=== PATIENT | female | born 1970 ===

== ENCOUNTER 2021-07-23 13:21 | Emergency (ER) | payer OTHER, SELFPAY ==
[2021-07-23 14:06] VITALS: BP 158/84; PULSE 95; RESP 18; TEMP 37.1; O2SAT 98; BMI 35.7
[2021-07-23 17:01] LABS: MANUAL DIFF FLAG NO
[2021-07-23 17:03] LABS: Basophils Absolute Auto 0.1 X10*3/uL (0.0-0.2); Basophils Percent Auto 0.5 % (0-2); Eosinophils Absolute Auto 0.4 X10*3/uL (0.0-0.4); Eosinophils Percent Auto 3.2 % (0-4); Hematocrit 42.3 % (37.0-47.0); Hemoglobin 14.5 g/dl (12.0-16.0); Imm Gran Abs Auto 0.05 X10*3/uL (0.00-0.03); Imm Gran Pct Auto 0.4 % (0.0-0.4); Lymphocytes Absolute Auto 1.7 X10*3/uL (1.2-4.9); Lymphocytes Percent Auto 14.6 % (20-40); Mean Corpuscular HGB Conc 34.3 g/dl (31.0-35.0); Mean Corpuscular Hemoglobin 30.9 pg (27.0-33.0); Monocytes Percent Auto 8.1 % (2-11); Neutrophils Absolute Auto 8.6 x10*3/uL (2.0-8.3); Neutrophils Percent Auto 73.2 % (45-73); Platelet Count 339 X10*3/uL (160-400); Red Cell Distribution Width 12.4 % (11.0-16.0); White Blood Count 11.8 X10*3/uL (4.8-10.8)
[2021-07-23 17:21] LABS: Alanine Aminotransferase 33 U/L (0-31); Albumin Level 4.8 g/dL (3.5-5.0); Alkaline Phosphatase 92 U/L (39-117); Anion Gap 14 (12-20); Aspartate Amino Transferase 29 U/L (5-31); Bilirubin Direct 0.3 mg/dL (0.0-0.5); Bilirubin Total 0.8 mg/dL (0.0-1.0); Blood Urea Nitrogen 7 mg/dL (9-16); Calcium 10.5 mg/dL (8.4-10.2); Carbon Dioxide 27 mmol/L (22-29); Chloride 103 mmol/L (96-108); Creatinine Clr Calc Pharmacy 102.4; Estimated Glomerular Filt Rate > 60; Glucose Random 98 mg/dL (60-115); Lipase 40 U/L (8-78); Potassium 3.5 mmol/L (3.3-5.1); Sodium 140 mmol/L (135-145); Total Protein 7.9 g/dL (6.5-8.0)
--- NOTE | 2021-07-23 18:40 | ED_ITS ---
HPI - General Adult General Chief complaint: Nausea/Vomiting/Diarrhea Stated complaint: post surgery/pain vomiting shaking Time Seen by Provider: 07/23/21 19:59 Source: patient Mode of arrival: ambulatory Limitations: no limitations History of Present Illness HPI narrative: 51-year-old female presents with 10/10 right shoulder pain, nausea and vomiting. Had surgery for rotator cuff repair on Tuesday. Was unable to tolerate the sling and she removed herself. Patient does not report any fevers or chills or any other concerning. Onset (ago): day(s) (2) Location: right and upper extremity Radiation: non-radiation Severity: severe Severity scale (1-10): 10 Quality: stabbing and aching Pain Consistency: constant Relieving factors: none Exacerbating factors: other (Vomiting) Related Data Previous Rx's Medication Instructions Recorded ondansetron 4 mg disintegrating 4 mg PO Q8H PRN #14 tab 07/23/21 tablet Allergies Allergy/AdvReac Type Severity Reaction Status Date / Time acetaminophen [From VICODIN] Allergy Unknown SHAKING Verified 07/23/21 19:18 SYNDROME amoxicillin [AMOXICILLIN] Allergy Unknown RASH Verified 07/23/21 19:18 hydrocodone [From VICODIN] Allergy Unknown SHAKING Verified 07/23/21 19:18 SYNDROME Review of Systems Review of Systems: Constitutional: No Fever, No Chills ENT/Mouth: No Ear Pain, No Hoarseness, No sore throat Eyes: No Eye Pain, No Swelling, No Redness, No Foreign Body Cardiovascular: No Chest Pain, No SOB Respiratory: No Cough, No Dyspnea Gastrointestinal: Positive Nausea, positive Vomiting, No Diarrhea, No abdominal Pain Genitourinary: No Dysuria, No Hematuria Musculoskeletal: positive right shoulder pain, No Myalgias, No Joint Swelling Skin: No Skin lacerations, No rash Neuro: No Weakness, No Numbness, No Paresthesias, No Loss of Consciousness, No Dizziness, No Headache Psych: No Anxiety/Panic, No Depression Heme/Lymph: no easy bruising, no Lymphadenopathy Endocrine: No Polyuria, No Polydipsia Yes all other systems are reviewed and are negative [facility] Past Medical History Attestation statement: The following information was validated with the patient. Source: old records reviewed Medical History Anxiety Asthma Depression HTN (hypertension) Social History Social History Advance Directives: No Advance Directives Information Provided: Yes Patient : No Physical Exam Vital Signs: Vital Signs: Last Vital Signs Temp 99.1 F 07/23/21 19:11 Pulse 80 07/23/21 19:11 Resp 18 07/23/21 19:21 BP 149/98 H 07/23/21 19:11 Pulse Ox 100 07/23/21 19:11 BMI result Body Mass Index 35.7 Appearance: Alert. Oriented X3. Moderate distress. Head: Normal external exam. Normocephalic. Atraumatic. No Wyatt signs noted. No raccoon eyes noted Eyes: PERRLA. EOMI. Conjunctiva and sclera normal. Eyelids normal. ENT: TM's Normal. Pharynx normal. Uvula midline. Moist mucous membranes. No trismus noted. No drooling noted. No muffled voice noted. Neck: Normal inspection. Neck supple. No adenopathy. Thyroid Normal. No meningeal signs. No neck mass noted. CVS: Normal heart rate and rhythm. Heart sound normal. No murmurs noted. Pulses equal to all extremities. Respiratory: No respiratory distress. Painless inspiration. Breath sounds normal. No wheezes/rales/rhonchi noted. Chest nontender. No accessory muscle usage noted or decreased air movement noted. Abdomen: Soft and nontender. Bowel sounds normal in all 4 quadrants. No distention noted. No organomegaly noted. No visible injury noted. Back: No CVA tenderness. Full range of motion noted. Skin: Laparoscopic surgical incisions to the right shoulder intact. No indication of infection. No purulent drainage or fluctuance to the sites. Bruising consistent with surgical procedure. warm and dry. Normal skin color. Normal skin turgor. No rashes/lesions/lacerations noted. Extremities: No lower extremity edema. Extremities exhibit normal range of motion with the exception of the right shoulder. Range of motion not tested in the shoulder secondary to laparoscopic rotator cuff repair. Neuro: cranial nerves 2-12 intact, no focal neural deficits, strength 5/5 to all extremities, No motor deficit. No sensory deficit. Course Course Course Narrative: 51-year-old female presents with nausea, vomiting and 10/10 pain to the right upper extremity. Has not been taking her medications because of her nausea. Labs drawn while patient was in the emergency department waiting room. Lab values are unremarkable. COVID, RSV and influenza testing is n egative. Blood pressure elevated, no indication of dehydration at this time. Will give Zofran, 1 L of fluid and some morphine for pain management. 6:40 p.m. patient removed sling in place. Will call out to her orthopedic surgeon. Patient has brisk capillary refill, equal pulses bilaterally. Ne urovascularly intact. Strength 5/5 to the digits. Range of motion to the shoulder not tested secondary surgical procedure on Tuesday. Abdominal exam negative. No chest wall tenderness to palpation. 7:40 p.m. discussion with on-call MD at [facility] Dr. Bruce, I updated her the patient removed the sling on her own regard. They will call her on Tuesday for evaluation. Patient does have brisk capillary refill, no indication of neurovascular injury. No indication of compartment syndrome or indication of infection at the surgical incision sites. Patient received oxycodone 5 mg 42 tablets on Tuesday. I will not be refilling any more medications for this patient. I will give Zofran which was discussed in detail with the provider on-call. Patient understands that she must keep the sling in place at all times. Will prescribe a prescription for Zofran sublingual tablets. Patient verbalized understanding of and agrees to plan of care discharge home. Consultations Consultation #1: [facility] Time: 19:40 Medical Decision Making Differential Diagnosis Differential Diagnosis: Nausea, vomiting, dehydration, medication reaction, infection Medical Records Medical records reviewed: Yes I reviewed the patient's medical records. Lab Data Lab results reviewed: Yes I reviewed the patient's lab results. Result diagrams: 07/23/21 16:55 07/23/21 16:55 Labs: Lab Results 07/23/21 07/23/21 07/23/21 Range/Units 16:55 16:55 19:26 WBC 11.8 H (4.8-10.8) X10*3/uL RBC 4.70 (4.20-5.50) X10*6/uL Hgb 14.5 (12.0-16.0) g/dl Hct 42.3 (37.0-47.0) % MCV 90.0 (80.0-98.0) fL MCH 30.9 (27.0-33.0) pg MCHC 34.3 (31.0-35.0) g/dl RDW 12.4 (11.0-16.0) % Plt Count 339 (160-400) X10*3/uL MPV 9.0 L (9.4-12.3) fL Immature Gran % (Auto) 0.4 (0.0-0.4) % Neut % (Auto) 73.2 H (45-73) % Lymph % (Auto) 14.6 L (20-40) % [place] % (Auto) 8.1 (2-11) % Eos % (Auto) 3.2 (0-4) % Baso % (Auto) 0.5 (0-2) % Lymph # (Auto) 1.7 (1.2-4.9) X10*3/uL [place] # (Auto) 1.0 (0.1-1.2) X10*3/uL Eos # (Auto) 0.4 (0.0-0.4) X10*3/uL Baso # (Auto) 0.1 (0.0-0.2) X10*3/uL Abs Immat Gran (auto) 0.05 H (0.00-0.03) X10*3/uL Absolute Neuts (auto) 8.6 H (2.0-8.3) x10*3/uL Absolute Nucleated RBC 0.000 (0.0-0.012) X10*3/uL Nucleated RBC % (auto) 0.0 (0.0-0.2) /100WBC Sodium 140 (135-145) mmol/L Potassium 3.5 (3.3-5.1) mmol/L Chloride 103 (96-108) mmol/L Carbon Dioxide 27 (22-29) mmol/L Anion Gap 14 (12-20) BUN 7 L (9-16) mg/dL Creatinine 0.84 (0.5-1.4) mg/dL Estim Creat Clear Calc 102.4 Estimated GFR > 60 Random Glucose 98 (60-115) mg/dL Calcium 10.5 H (8.4-10.2) mg/dL Total Bilirubin 0.8 (0.0-1.0) mg/dL Direct Bilirubin 0.3 (0.0-0.5) mg/dL AST 29 (5-31) U/L ALT 33 H (0-31) U/L Alkaline Phosphatase 92 (39-117) U/L Total Protein 7.9 (6.5-8.0) g/dL Albumin 4.8 (3.5-5.0) g/dL Lipase 40 (8-78) U/L Influenza Type A (PCR) NEGATIVE (Negative) Influenza Type B (PCR) NEGATIVE (Negative) RSV RNA Qual (PCR) NEGATIVE (Negative) SARS-CoV-2 RNA (RT-PCR) NEGATIVE (Negative) Discharge Plan Discharge Clinical Impression: Acute postoperative pain Patient Disposition: Home, Self-Care Instructions: Pain Management (ED), Pain Management After Surgery (DC) Additional Instructions: Your evaluated for postsurgical pain, nausea and vomiting. Her COVID-19 test is negative. Please keep the sling in place. Do not remove the sling for any purposes. Your doctor will call you on Tuesday for evaluation. If you do not hear from your surgeon on Tuesday please call for an appointment. I prescribed Zofran for nausea. Please take medication as directed. Thank you for choosing this emergency department for evaluation. Please follow-up with primary care physician as needed. Return to the emergency department for any new, concerning, or worsening symptoms. Prescriptions: New ondansetron 4 mg tablet,disintegrating 4 mg PO Q8H PRN (Reason: nausea and vomiting) Qty: 14 RF: 0 Interventions: ED Discharge Assessment Last Done: 07/23/21 20:46 Discharge Date/Time: 07/23/21 20:47
[2021-07-23 18:42] VITALS: BP 175/86; PULSE 88; RESP 18; TEMP 36.8; O2SAT 99
[2021-07-23 19:11] VITALS: BP 149/98; PULSE 80; RESP 17; TEMP 37.3; O2SAT 100
[2021-07-23] MEDS: 0.9 % Sodium Chloride 1,000 ML 999 ML IVCONT (19:19)
[2021-07-23] MEDS: diphenhydrAMINE HCL 50 MG/ML VIAL 25 MG IVPUSH (19:20)
[2021-07-23 19:21] VITALS: RESP 18
[2021-07-23] MEDS: Morphine Sulfate 4 MG/ML CARTRIDGE IVPUSH (19:21)
[2021-07-23] MEDS: ondansetron HCL 4 MG/2 ML VIAL IVPUSH (19:22)
[2021-07-23 20:12] LABS: Influenza A PCR NEGATIVE (Negative); Influenza B PCR NEGATIVE (Negative); Resp Syncy Virus RNA Qual PCR NEGATIVE (Negative); SARS COV2 PCR INHOUSE NEGATIVE (Negative)
[2021-07-23] MEDS: oxyCODONE HCl Immed Release 5 MG TABLET PO (20:28)
== END 2021-07-23 20:47 | disposition home or self-care (01) ==
PROVIDERS: Nurse Practitioner Family; Emergency Provider Internal Medicine; PCP Physician Assistant Medical
DX: G89.18 Other acute postprocedural pain (principal); M25.511 Pain in right shoulder; I10 Essential (primary) hypertension; J45.909 Unspecified asthma, uncomplicated; Z20.822 Contact with and (suspected) exposure to COVID-19
CPT/HCPCS: 0241U; 36415; 80048; 80076; 83690; 85025; 96361; 96374; 96375; 99284; J1200; J2270; J2405

== ENCOUNTER 2023-10-14 08:34 | Emergency (ER) | payer OTHER, SELFPAY ==
--- NOTE | ~2023-10-14 | XR_ITS ---
EXAMINATION: XR CHEST CLINICAL INFORMATION: Cough with shortness of breath COMPARISON: 11/07/2015 TECHNIQUE: Frontal view of the chest was obtained. FINDINGS: Lungs are well-inflated and clear. Trachea is midline in position. No interstitial disease, consolidation or mass. No pleural effusion or pneumothorax. Cardiac silhouette and pulmonary vessels are normal in size. The mediastinum and izabel have normal contour. The partially visualized components of the reverse right total shoulder arthroplasty are in normal position. XR/XR chest 1V IMPRESSION: Lungs have a normal appearance. No acute cardiopulmonary abnormality.
[2023-10-14 08:41] VITALS: BP 143/92; PULSE 92; RESP 16; TEMP 37.2; O2SAT 98; BMI 37.1
[2023-10-14 08:57] LABS: MANUAL DIFF FLAG NO
[2023-10-14 08:59] LABS: Basophils Absolute Auto 0.1 X10*3/uL (0.0-0.2); Basophils Percent Auto 0.8 % (0-2); Eosinophils Absolute Auto 0.2 X10*3/uL (0.0-0.4); Eosinophils Percent Auto 3.6 % (0-4); Hematocrit 35.3 % (37.0-47.0); Imm Gran Abs Auto 0.02 X10*3/uL (0.00-0.03); Imm Gran Pct Auto 0.3 % (0.0-0.4); Lymphocytes Absolute Auto 1.9 X10*3/uL (1.2-4.9); Lymphocytes Percent Auto 30.6 % (20-40); Mean Corpuscular Hemoglobin 31.4 pg (27.0-33.0); Mean Corpuscular Volume 92.4 fL (80.0-98.0); Mean Platelet Volume 9.2 fL (9.4-12.3); Monocytes Absolute Auto 0.4 X10*3/uL (0.1-1.2); Monocytes Percent Auto 6.2 % (2-11); Neutrophils Absolute Auto 3.7 x10*3/uL (2.0-8.3); Neutrophils Percent Auto 58.5 % (45-73); Platelet Count 228 X10*3/uL (160-400); Red Blood Count 3.82 X10*6/uL (4.20-5.50); Red Cell Distribution Width 13.8 % (11.0-16.0); White Blood Count 6.3 X10*3/uL (4.8-10.8)
[2023-10-14 09:07] LABS: IDNOW Serial# 08D9AD1C
[2023-10-14 09:20] LABS: Alanine Aminotransferase 97 U/L (0-31); Albumin Level 4.3 g/dL (3.5-5.0); Alkaline Phosphatase 214 U/L (39-117); Anion Gap 13 (12-20); Aspartate Amino Transferase 357 U/L (5-31); Bilirubin Total 0.6 mg/dL (0.0-1.0); Blood Urea Nitrogen 9 mg/dL (9-16); Calcium 9.1 mg/dL (8.4-10.2); Carbon Dioxide 26 mmol/L (22-29); Chloride 105 mmol/L (96-108); Creatinine Clr Calc Pharmacy 77.9; Estimated Glomerular Filt Rate 56; Glucose Random 97 mg/dL (60-115); Potassium 3.8 mmol/L (3.3-5.1); Sodium 140 mmol/L (135-145); Total Protein 7.1 g/dL (6.5-8.0)
[2023-10-14 09:26] LABS: Strep A Nucleic Acid Positive (Negative)
[2023-10-14 09:46] LABS: Influenza A PCR NEGATIVE (Negative); Influenza B PCR NEGATIVE (Negative); Resp Syncy Virus RNA Qual PCR NEGATIVE (Negative); SARS COV2 PCR INHOUSE NEGATIVE (Negative)
--- NOTE | 2023-10-14 10:05 | ED.GENADULT ---
HPI - General Adult General Chief complaint: Upper Respiratory Symptoms Stated complaint: sick for days Time Seen by Provider: 10/14/23 09:08 History of Present Illness HPI narrative: Patient with several days of cough and wheezing with history of asthma, as well as a sore throat and a runny nose She has been using her nebulizer machine frequently with relief but then symptoms of wheezing come back She denies headache no stiff neck no problem swallowing although she does have a sore throat and it does hurt to swallow, no abdominal pain no nausea vomiting or diarrhea Related Data Previous Rx's Medication Instructions Recorded ondansetron 4 mg disintegrating 4 mg PO Q8H PRN nausea and 07/23/21 tablet vomiting #14 tabs albuterol sulfate 2.5 mg/0.5 mL 5 mg inhalation Q6H PRN shortness 10/14/23 solution for nebulization of breath or wheezing #30 ea azithromycin 250 mg tablet See Rx Instructions PO .COMPLEX #6 10/14/23 (Zithromax Z-Carmelo) tabs ibuprofen 600 mg tablet 600 mg PO Q6H Pain or fever #20 10/14/23 tabs prednisone 20 mg tablet 60 mg (3 x 20 mg) PO DAILY 5 days 10/14/23 #15 tabs Allergies Allergy/AdvReac Type Severity Reaction Status Date / Time acetaminophen [From VICODIN] Allergy Unknown SHAKING Verified 10/14/23 08:43 SYNDROME amoxicillin [AMOXICILLIN] Allergy Unknown RASH Verified 10/14/23 08:43 hydrocodone [From VICODIN] Allergy Unknown SHAKING Verified 10/14/23 08:43 SYNDROME PMFSH Past Medical History Source: nursing notes reviewed Medical History Anxiety Asthma Depression HTN (hypertension) Social History Social History Advance Directives: No Advance Directives Information Provided: Yes Physical Exam ED Vital Signs: Vital Signs - 24 hr 10/14/23 08:41 10/14/23 10:16 Temperature 98.9 F Pulse Rate 92 70 Respiratory Rate 16 18 Blood Pressure 143/92 H Pulse Oximetry 98 Oxygen Delivery Method Room Air BMI result Body Mass Index 37.1 General appearance no distress speaking full sentences no respiratory distress The eyes no redness or discharge The pharynx has some redness but no swelling, voice is normal, uvula is midline, mucous membranes are moist Neck is supple Chest had faint wheezes but good air entry The heart no murmur Abdomen soft nontender Extremities no calf tenderness or edema no calf swelling Skin no rash Course Course Course Narrative: Serology was positive for strep throat negative for COVID and flu Chemistries showed elevated liver enzymes with AST 357 ALT 97, she will be advised to follow with her doctor to get them rechecked, albumin and protein were normal No other acute abnormalities on lab evaluation Patient got 1 nebulizer treatment and her lungs were clear with no wheezing after and she felt significantly improved She is discharged with diagnosis strep pharyngitis and asthma Chest x-ray was normal She says she is allergic to penicillin and amoxicillin so she is prescribed Zithromax for her sore throat strep throat Medications Administered Discontinued Medications Generic Name Dose Route Start Last Admin Trade Name Freq PRN Reason Stop Dose Admin Albuterol/Ipratropium 3 ml 10/14/23 10:04 10/14/23 10:15 Albuterol/Iprat 2.5/0.5mg 3 Ml Ampul.Neb INHALE 10/14/23 10:05 3 ml ONCE ONE Administration Medical Decision Making Lab Data [facility] Lab Attestation statement: I reviewed the patient's lab results. 10/14/23 08:52 10/14/23 08:52 Labs: Lab Results 10/14/23 Range/Units 08:52 WBC 6.3 (4.8-10.8) X10*3/uL RBC 3.82 L (4.20-5.50) X10*6/uL Hgb 12.0 (12.0-16.0) g/dl Hct 35.3 L (37.0-47.0) % MCV 92.4 (80.0-98.0) fL MCH 31.4 (27.0-33.0) pg MCHC 34.0 (31.0-35.0) g/dl RDW 13.8 (11.0-16.0) % Plt Count 228 D (160-400) X10*3/uL MPV 9.2 L (9.4-12.3) fL Immature Gran % (Auto) 0.3 (0.0-0.4) % Neut % (Auto) 58.5 (45-73) % Lymph % (Auto) 30.6 (20-40) % [place] % (Auto) 6.2 (2-11) % Eos % (Auto) 3.6 (0-4) % Baso % (Auto) 0.8 (0-2) % Lymph # (Auto) 1.9 (1.2-4.9) X10*3/uL [place] # (Auto) 0.4 (0.1-1.2) X10*3/uL Eos # (Auto) 0.2 (0.0-0.4) X10*3/uL Baso # (Auto) 0.1 (0.0-0.2) X10*3/uL Abs Immat Gran (auto) 0.02 (0.00-0.03) X10*3/uL Absolute Neuts (auto) 3.7 (2.0-8.3) x10*3/uL Absolute Nucleated RBC 0.000 (0.0-0.012) X10*3/uL Nucleated RBC % (auto) 0.0 (0.0-0.2) /100WBC Sodium 140 (135-145) mmol/L Potassium 3.8 (3.3-5.1) mmol/L Chloride 105 (96-108) mmol/L Carbon Dioxide 26 (22-29) mmol/L Anion Gap 13 (12-20) BUN 9 (9-16) mg/dL Creatinine 1.03 (0.5-1.4) mg/dL Estim Creat Clear Calc 77.9 Estimated GFR 56 Random Glucose 97 (60-115) mg/dL Calcium 9.1 D (8.4-10.2) mg/dL Total Bilirubin 0.6 (0.0-1.0) mg/dL AST 357 H (5-31) U/L ALT 97 H (0-31) U/L Alkaline Phosphatase 214 H (39-117) U/L Total Protein 7.1 (6.5-8.0) g/dL Albumin 4.3 (3.5-5.0) g/dL Influenza Type A (PCR) NEGATIVE (Negative) Influenza Type B (PCR) NEGATIVE (Negative) RSV RNA Qual (PCR) NEGATIVE (Negative) SARS-CoV-2 RNA (RT-PCR) NEGATIVE (Negative) S. pyogenes GrpA PAXTON Positive A (Negative) Discharge Plan Discharge Clinical Impression: Asthma, Acute streptococcal pharyngitis Patient Disposition: Home, Self-Care Additional Instructions: You tested positive for strep throat Chest x-ray was negative You had elevations of your liver test which often happens when a person has an illness so you should get them rechecked with your doctor in several weeks Return any time any worse condition or any concerns I wrote Zithromax to treat the strep throat, it may help with bronchitis Prescriptions: New prednisone 20 mg tablet 60 mg PO DAILY 5 Days Qty: 15 0RF azithromycin [Zithromax Z-Carmelo] 250 mg tablet See Rx Instructions .ROUTE .COMPLEX Qty: 6 0RF Rx Instructions: For 250 mg dose pack: take 500 mg today (day 1), then 250 mg for 4 days (days 2-5) albuterol sulfate 2.5 mg/0.5 mL solution for nebulization 5 mg inhalation Q6H PRN (Reason: shortness of breath or wheezing) Qty: 30 0RF ibuprofen 600 mg tablet 600 mg PO Q6H Qty: 20 0RF No Action ondansetron 4 mg tablet,disintegrating 4 mg PO Q8H PRN (Reason: nausea and vomiting) Qty: 14 0RF
[2023-10-14] MEDS: Albuterol/Iprat 2.5/0.5MG 3 ML AMPUL.NEB INHALE (10:15)
[2023-10-14 10:16] VITALS: PULSE 70; RESP 18; O2SAT 99
[2023-10-14 11:10] VITALS: BP 143/92; PULSE 70; RESP 18; TEMP 37.2; O2SAT 98
== END 2023-10-14 11:12 | disposition home or self-care (01) ==
PROVIDERS: Emergency Provider Emergency Medicine Emergency Medical Services; PCP Physician Assistant Medical
DX: J02.0 Streptococcal pharyngitis (principal); J45.909 Unspecified asthma, uncomplicated; I10 Essential (primary) hypertension; Z88.0 Allergy status to penicillin; Z11.52 Encounter for screening for COVID-19; Z20.828 Contact with and (suspected) exposure to other viral communicable diseases
CPT/HCPCS: 0241U; 71045; 80053; 85025; 87651; 94640; 99283; 99284

== ENCOUNTER 2024-09-25 08:27 | Emergency (ER) | payer OTHER, SELFPAY ==
--- NOTE | ~2024-09-25 | XR_ITS ---
EXAMINATION: XR CHEST CLINICAL INFORMATION: chest pain COMPARISON: October 14, 2023. TECHNIQUE: Frontal view of the chest was obtained. FINDINGS: No consolidation, pleural effusion or pneumothorax. No hyperinflation. Pulmonary reticular pattern. Cardiomediastinal silhouette size is normal. Metallic prosthesis proximal right humerus/glenoid right scapula. XR/XR chest 1V IMPRESSION: No acute airspace disease. Consider chronic interstitial lung disease. Electronically signed by: Cali Jennings MD 09/25/2024 09:16 AM [facility]
--- NOTE | 2024-09-25 08:30 | ECG_ITS ---
Test Reason : chest pain Blood Pressure : */* mmHG Vent. Rate : 94 BPM Atrial Rate : 94 BPM P-R Int : 164 ms QRS Dur : 78 ms QT Int : 360 ms P-R-T Axes : 37 19 42 degrees QTcB Int : 450 ms Normal sinus rhythm Low voltage QRS Borderline ECG When compared with ECG of 16-Jun-2016 16:00, Criteria for Septal infarct are no longer Present Referred By: Generic ED Physician Electronically Signed By: EDVIN CANTOR
[2024-09-25 08:55] VITALS: BP 151/73; PULSE 91; RESP 18; TEMP 36.4; O2SAT 99; BMI 36.5
[2024-09-25 09:18] LABS: MANUAL DIFF FLAG NO
[2024-09-25 09:20] LABS: Basophils Absolute Auto 0.1 X10*3/uL (0.0-0.2); Basophils Percent Auto 0.8 % (0-2); Eosinophils Absolute Auto 0.1 X10*3/uL (0.0-0.4); Eosinophils Percent Auto 1.3 % (0-4); Hematocrit 34.8 % (37.0-47.0); Hemoglobin 12.2 g/dl (12.0-16.0); Imm Gran Abs Auto 0.02 X10*3/uL (0.00-0.03); Imm Gran Pct Auto 0.3 % (0.0-0.4); Lymphocytes Absolute Auto 1.3 X10*3/uL (1.2-4.9); Lymphocytes Percent Auto 21.7 % (20-40); Mean Corpuscular HGB Conc 35.1 g/dl (31.0-35.0); Mean Corpuscular Hemoglobin 32.3 pg (27.0-33.0); Mean Corpuscular Volume 92.1 fL (80.0-98.0); Mean Platelet Volume 9.3 fL (9.4-12.3); Monocytes Absolute Auto 0.4 X10*3/uL (0.1-1.2); Monocytes Percent Auto 7.3 % (2-11); Neutrophils Absolute Auto 4.2 x10*3/uL (2.0-8.3); Neutrophils Percent Auto 68.6 % (45-73); Platelet Count 210 X10*3/uL (160-400); Red Blood Count 3.78 X10*6/uL (4.20-5.50); Red Cell Distribution Width 13.8 % (11.0-16.0); White Blood Count 6.1 X10*3/uL (4.8-10.8)
[2024-09-25 09:43] LABS: Albumin Level 4.4 g/dL (3.5-5.0); Alkaline Phosphatase 95 U/L (39-117); Anion Gap 13 (12-20); Aspartate Amino Transferase 73 U/L (5-31); Bilirubin Total 0.6 mg/dL (0.0-1.0); Blood Urea Nitrogen 10 mg/dL (9-16); Calcium 9.7 mg/dL (8.4-10.2); Carbon Dioxide 20 mmol/L (22-29); Chloride 113 mmol/L (96-108); Creatinine Clr Calc Pharmacy 118.4; Estimated Glomerular Filt Rate > 60; Glucose Random 97 mg/dL (60-115); Magnesium 2.3 mg/dL (1.6-2.6); Potassium 4.1 mmol/L (3.3-5.1); Sodium 142 mmol/L (135-145); Total Protein 7.5 g/dL (6.5-8.0)
[2024-09-25 09:46] LABS: Troponin-I High Sensitivity < 2.7 ng/L (<3.5-17.0)
[2024-09-25 09:55] LABS: Alanine Aminotransferase 53 U/L (0-31)
--- NOTE | 2024-09-25 10:20 | ED_ITS ---
HPI - Chest Pain General Chief Complaint: Chest Pain Stated Complaint: CP Time Seen by Provider: 09/25/24 10:20 Source: patient and RN notes reviewed Mode of arrival: ambulatory Limitations: no limitations History of Present Illness ED Provider: Emily Maya PA-C [facility] narrative: This is a 54-year-old female, with a history of asthma and hypertension who presents emergency department with concerns for chest pain which started yesterday. Patient reports that the chest pain started yesterday, and has been constant since. Patient reports that the pain worsens with deep breathing, and with coughing. No recent illness. No fevers, chills, palpitations, abdominal pain, nausea, vomiting or diarrhea. No recent hospitalizations, surgeries, travels. No history of blood clots. No lower extremity swelling. Denies taking any medications prior to arrival today. No other complaints or concerns at this time. MD complaint: chest pain Timing of current episode: constant Prior episodes: No Onset: during rest Pain location: left chest and right chest Pain radiation: none Severity: mild Quality: aching Relieving factors: nothing Exacerbating factors: nothing Associated symptoms: nausea Treatment prior to arrival: none Risk Factors Coronary artery disease risk factors: hypertension Thoracic aortic dissection risk factors: none Related Data On Oral Contraceptives: No Previous Rx's ?Medication ?Instructions ?Recorded ondansetron 4 mg disintegrating 4 mg PO Q8H PRN nausea and 07/23/21 tablet vomiting #14 tabs albuterol sulfate 2.5 mg/0.5 mL 5 mg inhalation Q6H PRN shortness 10/14/23 solution for nebulization of breath or wheezing #30 ea azithromycin 250 mg tablet See Rx Instructions PO .COMPLEX #6 10/14/23 (Zithromax Z-Carmelo) tabs ibuprofen 600 mg tablet 600 mg PO Q6H Pain or fever #20 10/14/23 tabs prednisone 20 mg tablet 60 mg (3 x 20 mg) PO DAILY 5 days 10/14/23 #15 tabs Allergies Allergy/AdvReac Type Severity Reaction Status Date / Time amoxicillin [AMOXICILLIN] Allergy Unknown RASH Verified 09/25/24 08:59 hydrocodone [From VICODIN] Allergy Unknown SHAKING Verified 09/25/24 08:59 SYNDROME Review of Systems 2 Review of Systems: Yes all other systems are reviewed and are negative Constitutional: Constitutional: Reports as per [facility] Past Medical History Medical History Anxiety Asthma Depression HTN (hypertension) Social History Social History Advance Directives: No Advance Directives Information Provided: Yes Do you have a plan to hurt others: No Plan Physical Exam 2 Vital Signs: Vital Signs: Last Vital Signs Temp 98.7 F 09/25/24 14:54 Pulse 78 09/25/24 14:54 Resp 16 09/25/24 14:54 BP 136/67 09/25/24 14:54 Pulse Ox 100 09/25/24 14:54 O2 Del Method Room Air 09/25/24 14:54 BMI result Body Mass Index 36.5 Const: General: cooperative, comfortable and no acute distress O rientation/consciousness: patient oriented x3 Limitations: no limitations HEENT: Head: Yes normal to inspection, Yes normocephalic and Yes atraumatic Ears: hearing grossly normal bilaterally General nose exam: Normal external nose present Face and sinus: Yes normal facial exam Mouth: Normal oral and palatal mucosa present, oropharynx normal and moist mucous membranes Throat: Yes posterior oropharynx normal Eyes: General: appearance normal, both eyes and all related structures E yelids: Yes eyelids normal Conjunctivae: conjunctivae normal Sclerae: s clerae normal Pupils: Equal, round and reactive pupils present EOM: EOMs intact bilaterally Neck: Neck: Yes normal visual inspection, Yes full ROM and Yes no lymphadenopathy Lymphatic: no lymphadenopathy noted Chest: Other: Tenderness palpation along the left anterior chest wall. No palpable deformities. Chest palpation & inspection: normal inspection of the chest Resp: Effort & Inspection: normal respiratory effort and able to speak in complete sentences Auscultation: clear to auscultation bilaterally, no crackles, no rales, no rhonchi and no wheezes Cardio: Rate: regular rate Rhythm: regular rhythm Heart sounds: S1 normal heart sound present and S2 normal heart sound present GI: Inspection: Yes normal to inspection Skin: General skin exam: no rashes or lesions noted Trauma: no lacerations or abrasions Wounds: no wounds Neuro: General: patient oriented x3 and moves all extremities Cranial nerves: Yes Equal, round and reactive pupils present Extrem: General: Yes normal to inspection Right upper extremity: normal to inspection Left upper extremity: normal to inspection Right lower extremity: normal to inspection Left lower extremity: normal to inspection Course Reevaluation(s) Reevaluation #1: Patient re-evaluated, still having chest pain, this is unlikely any cardiovascular type injury, awaiting 2nd troponin, will medicate with Toradol Time: 11:53 Reevaluation #2: Patient feeling much better after medications, she was given dose of morphine, she was eating and drinking, under no acute distress. Second troponin negative. Patient has a heart score of 2. Discussed strict return precautions. Encouraged to follow-up with her PCP. She understands agrees with plan. Patient stable for discharge. Time: 15:14 Medications Administered Discontinued Medications Generic Name Dose Route Start Last Admin Trade Name Freq PRN Reason Stop Dose Admin Sodium Chloride 1,000 mls @ 999 mls/hr 09/25/24 10:41 09/25/24 12:04 Ns IV 09/25/24 11:41 Infused .Q1H1M ONE Infusion Acetaminophen 1,000 mg in 100 mls @ 400 mls/hr 09/25/24 10:40 09/25/24 11:17 Ofirmev IV 09/25/24 10:54 Infused ONCE ONE Infusion Ketorolac Tromethamine 15 mg 09/25/24 11:56 09/25/24 12:08 Ketorolac Tromethamine 15 Mg/Ml Vial IVPUSH 09/25/24 11:57 15 mg ONCE ONE Administration Morphine Sulfate 4 mg 09/25/24 13:12 09/25/24 13:55 Morphine Sulfate 4 Mg/Ml Cartridge IVPUSH 09/25/24 13:13 4 mg ONCE ONE Administration Protocol Ondansetron HCl 4 mg 09/25/24 10:40 09/25/24 10:58 Ondansetron Hcl 4 Mg/2 Ml Vial IVPUSH 09/25/24 10:41 4 mg ONCE ONE Administration Ondansetron HCl 4 mg 09/25/24 13:57 09/25/24 14:02 Ondansetron Hcl 4 Mg/2 Ml Vial IVPUSH 09/25/24 13:58 4 mg ONCE ONE Administration Medical Decision Making Medical Decision Making MDM Narrative: This is a 54-year-old female who presents emergency department with complaints of left-sided chest pain since yesterday. On arrival, patient mildly hypertensive at 151/73, all other vital signs within normal limits. She is well-appearing, speaking in full sentences under no acute distress. Labs were performed prior to my assessment, she has no leukocytosis, stable H&H, no significant electrolyte derangement. She does have mildly elevated AST and ALT at 73 in 53 respectively. Mildly elevated CPK at 215, 1st troponin less than 2.7. Will repeat 2nd troponin. Chest x-ray revealing chronic interstitial lung disease. Lungs are clear to auscultation bilaterally. Regular rate and rhythm. EKG normal sinus rhythm with no ST elevation or depression. Will add on D-dimer to rule out PE although this is unlikely as patient has no risk factors, and she is not hypoxic or tachycardic. Differential Diagnosis Differential Diagnoses: The differential diagnosis associated with the presentation includes PE, ACS, costochondritis, atypical chest pain, pneumonia, viral syndrome Lab Data [facility] Lab Attestation statement: I reviewed the patient's lab results. See [facility] 09/25/24 09:13 09/25/24 09:13 Labs: Lab Results 09/25/24 09/25/24 09/25/24 Range/Units 09:13 10:52 11:19 WBC 6.1 (4.8-10.8) X10*3/uL RBC 3.78 L (4.20-5.50) X10*6/uL Hgb 12.2 (12.0-16.0) g/dl Hct 34.8 L (37.0-47.0) % MCV 92.1 (80.0-98.0) fL MCH 32.3 (27.0-33.0) pg MCHC 35.1 H (31.0-35.0) g/dl RDW 13.8 (11.0-16.0) % Plt Count 210 (160-400) X10*3/uL MPV 9.3 L (9.4-12.3) fL Immature Gran % (Auto) 0.3 (0.0-0.4) % Neut % (Auto) 68.6 (45-73) % Lymph % (Auto) 21.7 (20-40) % [place] % (Auto) 7.3 (2-11) % Eos % (Auto) 1.3 (0-4) % Baso % (Auto) 0.8 (0-2) % Lymph # (Auto) 1.3 (1.2-4.9) X10*3/uL [place] # (Auto) 0.4 (0.1-1.2) X10*3/uL Eos # (Auto) 0.1 (0.0-0.4) X10*3/uL Baso # (Auto) 0.1 (0.0-0.2) X10*3/uL Abs Immat Gran (auto) 0.02 (0.00-0.03) X10*3/uL Absolute Neuts (auto) 4.2 (2.0-8.3) x10*3/uL Absolute Nucleated RBC 0.000 (0.0-0.012) X10*3/uL Nucleated RBC % (auto) 0.0 (0.0-0.2) /100WBC D-Dimer High Sensitivty < 150 NG/ML Sodium 142 (135-145) mmol/L Potassium 4.1 (3.3-5.1) mmol/L Chloride 113 H (96-108) mmol/L Carbon Dioxide 20 L (22-29) mmol/L Anion Gap 13 (12-20) BUN 10 (9-16) mg/dL Creatinine 0.71 (0.5-1.4) mg/dL Estim Creat Clear Calc 118.4 Estimated GFR > 60 Random Glucose 97 (60-115) mg/dL Calcium 9.7 D (8.4-10.2) mg/dL Magnesium 2.3 (1.6-2.6) mg/dL Total Bilirubin 0.6 (0.0-1.0) mg/dL AST 73 H (5-31) U/L ALT 53 H (0-31) U/L Alkaline Phosphatase 95 (39-117) U/L Total Creatine Kinase 215 H (26-140) U/L Troponin I High Sens < 2.7 (<3.5-17.0) ng/L Total Protein 7.5 (6.5-8.0) g/dL Albumin 4.4 (3.5-5.0) g/dL Lipase 38 (8-78) U/L Influenza Type A (PCR) NEGATIVE (Negative) Influenza Type B (PCR) NEGATIVE (Negative) RSV RNA Qual (PCR) NEGATIVE (Negative) SARS-CoV-2 RNA (RT-PCR) NEGATIVE (Negative) 09/25/24 Range/Units 12:33 WBC (4.8-10.8) X10*3/uL RBC (4.20-5.50) X10*6/uL Hgb (12.0-16.0) g/dl Hct (37.0-47.0) % MCV (80.0-98.0) fL MCH (27.0-33.0) pg MCHC (31.0-35.0) g/dl RDW (11.0-16.0) % Plt Count (160-400) X10*3/uL MPV (9.4-12.3) fL Immature Gran % (Auto) (0.0-0.4) % Neut % (Auto) (45-73) % Lymph % (Auto) (20-40) % [place] % (Auto) (2-11) % Eos % (Auto) (0-4) % Baso % (Auto) (0-2) % Lymph # (Auto) (1.2-4.9) X10*3/uL [place] # (Auto) (0.1-1.2) X10*3/uL Eos # (Auto) (0.0-0.4) X10*3/uL Baso # (Auto) (0.0-0.2) X10*3/uL Abs Immat Gran (auto) (0.00-0.03) X10*3/uL Absolute Neuts (auto) (2.0-8.3) x10*3/uL Absolute Nucleated RBC (0.0-0.012) X10*3/uL Nucleated RBC % (auto) (0.0-0.2) /100WBC D-Dimer High Sensitivty NG/ML Sodium (135-145) mmol/L Potassium (3.3-5.1) mmol/L Chloride (96-108) mmol/L Carbon Dioxide (22-29) mmol/L Anion Gap (12-20) BUN (9-16) mg/dL Creatinine (0.5-1.4) mg/dL Estim Creat Clear Calc Estimated GFR Random Glucose (60-115) mg/dL Calcium (8.4-10.2) mg/dL Magnesium (1.6-2.6) mg/dL Total Bilirubin (0.0-1.0) mg/dL AST (5-31) U/L ALT (0-31) U/L Alkaline Phosphatase (39-117) U/L Total Creatine Kinase (26-140) U/L Troponin I High Sens < 2.7 (<3.5-17.0) ng/L Total Protein (6.5-8.0) g/dL Albumin (3.5-5.0) g/dL Lipase (8-78) U/L Influenza Type A (PCR) (Negative) Influenza Type B (PCR) (Negative) RSV RNA Qual (PCR) (Negative) SARS-CoV-2 RNA (RT-PCR) (Negative) Independent Interpretation I performed an independent interpretation of an: EKG Interpretation: EKG normal sinus rhythm at a ventricular rate of 94 beats per minute, SC interval 164, QT QTC 360/450, no ST elevation or depression. Radiology Impression Discussion of test interpretation with radiology: I have reviewed the radiologist's reading. Radiologist Impression: EXAMINATION: XR CHEST CLINICAL INFORMATION: chest pain COMPARISON: October 14, 2023. TECHNIQUE: Frontal view of the chest was obtained. FINDINGS: No consolidation, pleural effusion or pneumothorax. No hyperinflation. Pulmonary reticular pattern. Cardiomediastinal silhouette size is normal. Metallic prosthesis proximal right humerus/glenoid right scapula. XR/XR chest 1V IMPRESSION: No acute airspace disease. Consider chronic interstitial lung disease. Electronically signed by: Cali Jennings MD 09/25/2024 09:16 AM [facility] Dictated By: Cali Blankenship MD Scores Heart Score History: -0- slightly suspicious ECG: -0- normal Age: -1- >45 - <65 Risk factory: -1- 1 or 2 risk factors Troponin: -0- < or = normal limit Score: 2 Risk: 1.7% Discharge Plan Discharge Clinical Impression: Atypical chest pain Patient Disposition: Home, Self-Care Instructions: Chest Pain (ED), Chest Wall Pain (ED) Additional Instructions: You were seen in the emergency department due to chest pain. Your blood work was reassuring. Your EKG was normal. Your chest x-ray shows evidence of chronic interstitial lung disease, no pneumonia seen. Please drink plenty of fluids get plenty of rest. You tested negative for COVID, flu, and RSV. It is unclear what is causing you to have these symptoms however your workup today was reassuring. Alternate between ibuprofen and or Tylenol as needed for pain. Follow-up with your primary care physician. If any new or worsening symptoms occur including but not limited to worsening pain, shortness for breath, please seek emergent care. Prescriptions: No Action ondansetron 4 mg tablet,disintegrating 4 mg PO Q8H PRN (Reason: nausea and vomiting) Qty: 14 0RF prednisone 20 mg tablet 60 mg PO DAILY 5 Days Qty: 15 0RF azithromycin [Zithromax Z-Carmelo] 250 mg tablet See Rx Instructions .ROUTE .COMPLEX Qty: 6 0RF Rx Instructions: For 250 mg dose pack: take 500 mg today (day 1), then 250 mg for 4 days (days 2-5) albuterol sulfate 2.5 mg/0.5 mL solution for nebulization 5 mg inhalation Q6H PRN (Reason: shortness of breath or wheezing) Qty: 30 0RF ibuprofen 600 mg tablet 600 mg PO Q6H Qty: 20 0RF Interventions: ED Discharge Assessment Last Done: 09/25/24 14:54 Discharge Date/Time: 09/25/24 14:57 Print Language: Indian
[2024-09-25] MEDS: 0.9 % Sodium Chloride 1,000 ML 999 ML IV (10:56)
[2024-09-25] MEDS: Acetaminophen 1,000 MG/100 ML PIGGYBACK 400 MG IV (10:57)
[2024-09-25] MEDS: ondansetron HCL 4 MG/2 ML VIAL IVPUSH ×2 (10:58→14:02)
[2024-09-25 11:08] LABS: Lipase 38 U/L (8-78)
[2024-09-25 11:09] LABS: D Dimer High Sensitivity < 150 NG/ML
[2024-09-25] MEDS: Ketorolac Tromethamine 15 MG/ML VIAL IVPUSH (12:08)
[2024-09-25 12:20] LABS: Influenza A PCR NEGATIVE (Negative); Influenza B PCR NEGATIVE (Negative); Resp Syncy Virus RNA Qual PCR NEGATIVE (Negative); SARS COV2 PCR INHOUSE NEGATIVE (Negative)
--- OUTSIDE RECORDS SUMMARY | 2024-09-25 12:21 | XMS_ITS | Clinical Summary ---
Author Organization [employer] [facility] Address [address] [place] [address] Care Team Providers Care Hand Stamper Name Role Phone Unavailable Primary Care Provider Unavailabl e Social History Tobacco Use Types Packs/Day Years Used Date Smoking Tobacco: Never Assessed Comments Unknown Sex and Gender Information Value Date Recorded Sex Assigned at Not on file Legal Sex Female 9:10 AM EST Gender Identity Not on file Sexual Orientation Not on file Plan of Treatment Health Maintenance Due Date Last Done Comments Breast Cancer Screening 1971 DTaP,Tdap,and Td Vaccines (1 - Tdap) 1990 Hepatitis B Vaccines (1 of 3 - 19+ 3-dose series) 1990 Cervical Cancer Screening: P ap Smear 1992 Pneumococcal Vaccine: 50+ Ye ars (1 of 1 - PCV) 2021 Zoster Vaccines (1 of 2) 2021 Colorectal Cancer Screening: Colonoscopy 07/04/2022 Depression Screening 07/04/2022 HIV Screening 07/04/2022 Hepatitis C Screening 07/04/2022 Social Influencers of Health Screening 07/04/2022 COVID-19 Vaccine ( - 2023-2 5 season) 2024 Influenza Vaccine (#1) 2024 HIB Vaccines Aged Out No longer eligi ble based on patient's age to complete this topic HPV Vaccines Aged Out No longer eligi ble based on patient's age to complete this topic Hepatitis A Vaccines Aged Out No long er eligible based on patient's age to complete this topic IPV Vaccines Aged Out No longer eligi ble based on patient's age to complete this topic MMR Vaccines Aged Out No longer eligi ble based on patient's age to complete this topic Meningococcal ACWY Vaccine Aged Out N o longer eligible based on patient's age to complete this topic Meningococcal B Vacine Aged Out No lo nger eligible based on patient's age to complete this topic Pneumococcal Vaccine: Pediat rics (0 to 5 Years) and At-Risk Patients (6 to 64 Years) Aged Out No longer eligible b ased on patient's age to complete this topic RSV Immunization Patients Un dante 20 months Aged Out No longer eligible b ased on patient's age to complete this topic Varicella Vaccines Aged Out No longer eligible based on patient's age to complete this topic
[2024-09-25 12:34] VITALS: BP 136/67; PULSE 78; O2SAT 100
[2024-09-25 13:15] LABS: Troponin-I High Sensitivity < 2.7 ng/L (<3.5-17.0)
[2024-09-25] MEDS: Morphine Sulfate 4 MG/ML CARTRIDGE IVPUSH (13:55)
[2024-09-25 14:54] VITALS: BP 136/67; PULSE 78; RESP 16; TEMP 37.1; O2SAT 100
--- NOTE | 2024-09-26 10:53 | MHC.CM.ED ---
Received voicemail from [facility] that patient is active with their agency. ER d/c summary faxed to [phone].
== END 2024-09-25 14:57 | disposition home or self-care (01) ==
PROVIDERS: Physician Assistant Medical; Emergency Provider Emergency Medicine; PCP Physician Assistant Medical
DX: R07.89 Other chest pain (principal); R11.2 Nausea with vomiting, unspecified; I10 Essential (primary) hypertension; R07.1 Chest pain on breathing; Z79.899 Other long term (current) drug therapy; Z03.818 Encounter for observation for suspected exposure to other biological agents ruled out
CPT/HCPCS: 0241U; 36415; 71045; 80053; 82550; 83690; 83735; 84484; 85025; 85379; 93005; 96361; 96374; 96375; 96376; 99284; J0131; J1885; J2270; J2405

== ENCOUNTER → 2024-09-25 08:30 | Outpatient (BNV) | payer OTHER, SELFPAY | PROVIDERS: Emergency Provider Emergency Medicine; PCP Physician Assistant Medical; Visit Provider Internal Medicine | DX: R07.9 Chest pain, unspecified (principal); R94.31 Abnormal electrocardiogram [ECG] [EKG] | CPT/HCPCS: 93010 ==

== ENCOUNTER → 2024-09-25 09:00 | Outpatient (BNV) | payer OTHER, SELFPAY | PROVIDERS: PCP Physician Assistant Medical; Visit Provider Radiology Diagnostic Radiology | DX: R07.9 Chest pain, unspecified (principal) | CPT/HCPCS: 71045 ==

== ENCOUNTER 2025-01-15 09:05 | Emergency (ER) | payer OTHER, SELFPAY ==
--- NOTE | ~2025-01-15 | CT_ITS ---
EXAMINATION: CT LUMBAR SPINE WITHOUT CONTRAST TECHNIQUE: Axial imaging was performed from the thoracolumbar junction to the mid to lower sacrum without IV contrast. Coronal and sagittal reformatted images were generated from the original axial data set. This CT examination was performed using dose optimization techniques as appropriate, variously including the following: *Automated exposure control *Adjustment of mA and/or kV according to patient size (this includes techniques or standardized protocols for targeted exams where dose is matched to indication/reason for exam; i.e. extremities or head) *Use of iterative reconstruction technique DLP: 744 mGY*cm INDICATION: Low back pain after falling PRIOR: X-ray January 22, 2008 FINDINGS: There are 5 non-rib bearing lumbar segments. There is concavity of the superior endplate of L2 with 50-60% loss of height. There is flattening with mild concavity of superior endplate of L4 with 25-35% loss of height. Contrast resolution on CT is suboptimal for evaluating spinal canal and neural foramina. L2-3: There is subtle retrolisthesis and circumferential broad-based disc bulge with mild facet protrusion resulting in daam-bi-aysuyiga spinal stenosis. There is probably mild foraminal narrowing. L3-L4: There is mild circumferential broad-based disc bulge and mild facet hypertrophy likely with mild spinal stenosis and minimal foraminal narrowing. L4-L5: There is subtle anterolisthesis. There is broad-based disc bulge. There is moderate facet sclerosis and osteophytes with vacuum phenomenon. L5-S1: There is moderate loss of disc height and vacuum phenomena. There is endplate sclerosis and osteophytes. There is broad-based disc bulge. There is moderate facet sclerosis and osteophytes with vacuum phenomenon. CT/CT lumbar spine wo IV con IMPRESSION: Suspected acute moderate L2 and and [id number]-[id number] L4 superior endplate compression fractures. Degenerative disc disease and facet arthropathy. There is possible mild spinal stenosis and foraminal narrowing not well demonstrated on CT. Electronically signed by: Nando Pollard MD 01/15/2025 12:55 PM EDT
[2025-01-15 09:11] VITALS: BP 132/88; PULSE 96; O2SAT 98
--- NOTE | 2025-01-15 09:19 | ED_ITS ---
HPI - General Adult General Chief complaint: Fall Stated complaint: FALL FROM HT ON BUTTOCK T-1,LOW BACK PAIN/BRUISING Time Seen by Provider: 01/15/25 09:18 Source: patient and EMS Mode of arrival: EMS Limitations: no limitations History of Present Illness ED Provider: Mita Allen PA-C HPI narrative: Patient is a 54 year old assigned female at with no reported medical history presenting to the emergency department today with low back pain. Patient states that yesterday she climbed on top of her counter to look for cooking pots when she fell and landed on her buttock. Patient states that she has had low back pain ever since and has had an episode of urinary incontinence. Patient denies any head strike, loss of consciousness with the incident, dizziness, lightheadedness, abdominal pain, nausea, vomiting, fever, chills, blurry vision, double vision, loss of vision, chest pain, difficulty breathing, shortness of breath, night sweats, pain with urination, increased urinary frequency, increased urinary urgency, blood in her urine or stool, syncope or a near syncopal episode, bowel incontinence, or any other complaints at this time. Onset (ago): day(s) (1) Location: back Relieving factors: none Exacerbating factors: none Associated symptoms: denies other symptoms Treatments prior to arrival: none Related Data Previous Rx's ?Medication ?Instructions ?Recorded ondansetron 4 mg disintegrating 4 mg PO Q8H PRN nausea and 07/23/21 tablet vomiting #14 tabs albuterol sulfate 2.5 mg/0.5 mL 5 mg inhalation Q6H PRN shortness 10/14/23 solution for nebulization of breath or wheezing #30 ea azithromycin 250 mg tablet See Rx Instructions PO .COMPLEX #6 10/14/23 (Zithromax Z-Carmelo) tabs ibuprofen 600 mg tablet 600 mg PO Q6H Pain or fever #20 10/14/23 tabs prednisone 20 mg tablet 60 mg (3 x 20 mg) PO DAILY 5 days 10/14/23 #15 tabs acetaminophen 500 mg tablet 1,000 mg (2 x 500 mg) PO Q6H PRN 09/25/24 (Tylenol Extra Strength) pain #30 tabs ibuprofen 600 mg tablet 600 mg PO Q6H PRN pain #30 tabs 02/25/25 naproxen 500 mg tablet 500 mg PO BID 7 days #14 tabs 01/15/25 Allergies Allergy/AdvReac Type Severity Reaction Status Date / Time amoxicillin [AMOXICILLIN] Allergy Unknown RASH Verified 01/15/25 09:21 hydrocodone [From VICODIN] Allergy Unknown SHAKING Verified 01/15/25 09:21 SYNDROME Review of Systems 2 Constitutional: Constitutional: Reports no additional constitutional complaints, Denies chills, Denies fever(s) and Denies night sweats Eyes: Eyes: Reports no additional eye complaints, Denies blurry vision, Denies change in vision, Denies diplopia, Denies eye discharge, Denies loss of vision and Denies eye pain ENT: Denies dizziness Cardiovascular: Cardiovascular: Reports no additional cardiovascular complaints, Denies chest pain, Denies lightheadedness, Denies Loss of Consciousness and Denies dyspnea Respiratory: Respiratory: Reports no additional respiratory complaints and Denies dyspnea Gastrointestinal: Gastrointestinal: Reports no additional gastrointestinal complaints, Denies abdominal pain, Denies melena, Denies hematochezia, Denies change in bowel habits and Denies change in stool character Genitourinary: Genitourinary: Denies hematuria, Denies urinary frequency, Denies dysuria, Reports urinary incontinence, Denies urinary hesitancy and Denies urinary urgency Musculoskeletal: Musculoskeletal: Reports no additional musculoskeletal complaints, Denies numbness and Denies tingling Comments: low back pain Neurologic: Denies dizziness, Denies loss of vision, Denies numbness and Denies tingling Psychiatric: Psychiatric: Reports no additional psychiatric complaints Endocrine: Endocrine: Reports no additional endocrine complaints Hematologic/Lymphatic: Hematologic/Lymphatic: Reports no additional hematologic/lymphatic complaints Allergic/Immunologic: Allergic/Immunologic: Reports no additional allergic/immunologic complaints [facility] Past Medical History Attestation statement: The following information was validated with the patient. Source: old records reviewed and nursing notes reviewed Medical History Asthma Anxiety Depression HTN (hypertension) Social History Social History Smoked in Last 30 Days: No Use of substances other than those prescribed or required for medical reasons: Yes Substance Use Type: Marijuana Substance Use Frequency: Occasionally Advance Directives: No Advance Directives Information Provided: Yes Do you have a plan to hurt others: No Plan Patient : No Physical Exam ED Vital Signs: Vital Signs - 24 hr 01/15/25 09:20 01/15/25 10:04 01/15/25 10:42 Temperature 97.9 F 97.4 F Pulse Rate 97 80 Respiratory Rate 18 18 18 Blood Pressure 124/68 123/70 Pulse Oximetry 98 96 Oxygen Delivery Method Room Air Room Air BMI result Body Mass Index 37.7 Const General: cooperative, no acute distress, alert and awake Nutritional Appearance: well nourished Orientation/consciousness: patient oriented x3 HENMT Head: Yes normal to inspection and Yes atraumatic Ears: hearing grossly normal bilaterally and external ears normal General nose exam: Normal external nose present, no nasal discharge noted and no epistaxis Face and sinus: Yes normal facial exam, No abrasion and No laceration Mouth: Normal oral and palatal mucosa present, no drooling and no muffled voice Eyes General: appearance normal, both eyes and all related structures Periorbital: periorbital findings normal Eyelids: Yes eyelids normal Conjunctivae: conjunctivae normal Pupils: Equal, round and reactive pupils present EOM: EOMs intact bilaterally Neck Neck: Yes normal visual inspection, Yes full ROM and Yes no lymphadenopathy Resp Effort & Inspection: normal respiratory effort and able to speak in complete sentences Neuro General: patient oriented x3, moves all extremities and CN's II-XI intact bilaterally Cranial nerves: Yes Equal, round and reactive pupils present Cognition (Neuro): normal cognition Extrem General: Yes normal to inspection, Yes full ROM and Yes capillary refill normal Psych Appearance: grossly normal Mental Status: mental status grossly normal Affect: normal affect Attitude: cooperative Thought process: Normal thought process present Thought content: Normal thought content present Insight: Good insight present (Psych) Medications Administered Discontinued Medications Generic Name Dose Route Start Last Admin Trade Name Blaiseq PRN Reason Stop Dose Admin Diazepam 5 mg 01/15/25 13:00 01/15/25 13:15 Diazepam 10 Mg/2 Ml Cartridge IVPUSH 01/15/25 13:01 5 mg STAT STA Administration Morphine Sulfate 4 mg 01/15/25 09:26 01/15/25 10:04 Morphine Sulfate 4 Mg/Ml Cartridge IVPUSH 01/15/25 09:27 4 mg ONCE ONE Administration Protocol Ondansetron HCl 4 mg 01/15/25 09:26 01/15/25 10:04 Ondansetron Hcl 4 Mg/2 Ml Vial IVPUSH 01/15/25 09:27 4 mg ONCE ONE Administration Medical Decision Making Medical Decision Making [facility] Narrative: Patient is a 54 year old assigned female at with no reported medical history presenting to the emergency department today with low back pain. Patient's physical exam was unremarkable. Patient was able to ambulate without incident while in the department. Patient did not have any additional episodes of urinary or stool incontinence. Patient's lumbar CT showed an L2 and L4 compression fracture. Patient's blood work was unremarkable. Patient's urine was unremarkable. I explained my physical exam findings as well as all test results to the patient. I answered all questions asked by the patient. Patient received IV Morphine and valium which, upon re-evaluation, she stated it helped her symptoms significantly. I stressed the importance of the patient taking her medication as directed (either prescribed or as the over the counter packaging recommends). I stressed the importance of the patient following up with her primary care provider and a patient financial services specialist. I stressed the importance of the patient returning to the emergency department immediately if her symptoms were to worsen or if she were to develop any dizziness, shortness of breath, difficulty breathing, chest pain, blurry vision, loss of vision, nausea, vomiting, abdominal pain, fever, chills, back pain, or any other complaints. Patient verbalized agreement and understanding with this treatment plan and discharge. Differential Diagnosis Differential Diagnoses: The differential diagnosis associated with the presentation includes Vertebrae fracture Compression fracture Contusion Muscle strain Muscle sprain Admission/Observation Consideration of admission/observation: Escalation of care including admission/observation considered Patient would have been admitted to the hospital had her work up had any findings where hospital admission was appropriate and her clinical presentation warranted hospital admission. Lab Data [facility] Lab Attestation statement: I reviewed the patient's lab results. My interpretation of these results are in the [facility] Rationale portion of this note. 01/15/25 09:45 01/15/25 09:45 Labs: Lab Results 01/15/25 01/15/25 Range/Units 09:45 11:56 WBC 8.0 (4.8-10.8) X10*3/uL RBC 4.20 (4.20-5.50) X10*6/uL Hgb 12.9 (12.0-16.0) g/dl Hct 39.2 (37.0-47.0) % MCV 93.3 (80.0-98.0) fL MCH 30.7 (27.0-33.0) pg MCHC 32.9 (31.0-35.0) g/dl RDW 13.0 (11.0-16.0) % Plt Count 286 D (160-400) X10*3/uL MPV 9.4 (9.4-12.3) fL Immature Gran % (Auto) 0.5 H (0.0-0.4) % Neut % (Auto) 70.7 (45-73) % Lymph % (Auto) 14.3 L (20-40) % [place] % (Auto) 9.7 (2-11) % Eos % (Auto) 3.9 (0-4) % Baso % (Auto) 0.9 (0-2) % Lymph # (Auto) 1.1 L (1.2-4.9) X10*3/uL [place] # (Auto) 0.8 (0.1-1.2) X10*3/uL Eos # (Auto) 0.3 (0.0-0.4) X10*3/uL Baso # (Auto) 0.1 (0.0-0.2) X10*3/uL Abs Immat Gran (auto) 0.04 H (0.00-0.03) X10*3/uL Absolute Neuts (auto) 5.6 (2.0-8.3) x10*3/uL Absolute Nucleated RBC 0.000 (0.0-0.012) X10*3/uL Nucleated RBC % (auto) 0.0 (0.0-0.2) /100WBC Sodium 138 (135-145) mmol/L Potassium 3.5 (3.3-5.1) mmol/L Chloride 108 (96-108) mmol/L Carbon Dioxide 22 (22-29) mmol/L Anion Gap 12 (12-20) BUN 8 L (9-16) mg/dL Creatinine 0.77 (0.5-1.4) mg/dL Estim Creat Clear Calc 111.1 Estimated GFR > 60 Random Glucose 110 (60-115) mg/dL Calcium 9.7 (8.4-10.2) mg/dL Magnesium 2.0 (1.6-2.6) mg/dL Total Bilirubin 0.9 (0.0-1.0) mg/dL AST 104 H (5-31) U/L ALT 80 H (0-31) U/L Alkaline Phosphatase 143 H (39-117) U/L Total Protein 7.4 (6.5-8.0) g/dL Albumin 4.0 (3.5-5.0) g/dL Urine Color Yellow Urine Appearance Cloudy Urine pH 7.0 (5.0-9.0) Ur Specific Peculiar 1.015 (1.005-1.025) Urine Protein Negative (Neg-Trace) mg/dL Urine Glucose (UA) Negative (Negative) mg/dL Urine Ketones Negative (Negative) mg/dL Urine Blood Negative (Negative) Urine Nitrite Negative (Negative) Ur Leukocyte Esterase Trace H (Negative) Urine RBC 0-2 (0-2) /HPF Urine WBC 0-5 (0-5) /HPF Ur Squamous Epith Cells 11-20 (0-2) /HPF Urine Bacteria 2+ (None Seen) Hyaline Casts 0-2 (0-2) /LPF Independent Interpretation I performed an independent interpretation of an: CT Scan (lumbar) Interpretation: My interpretation is in agreement with the radiologist's impression of this imaging study. L Report Number: [id number]: Total DLP = 744.00 mGy-cm EXAMINATION: CT LUMBAR SPINE WITHOUT CONTRAST TECHNIQUE: Axial imaging was performed from the thoracolumbar junction to the mid to lower sacrum without IV contrast. Coronal and sagittal reformatted images were generated from the original axial data set. This CT examination was performed using dose optimization techniques as appropriate, variously including the following: *Automated exposure control *Adjustment of mA and/or kV according to patient size (this includes techniques or standardized protocols for targeted exams where dose is matched to indication/reason for exam; i.e. extremities or head) *Use of iterative reconstruction technique DLP: 744 mGY*cm INDICATION: Low back pain after falling PRIOR: X-ray January 22, 2008 FINDINGS: There are 5 non-rib bearing lumbar segments. There is concavity of the superior endplate of L2 with 50-60% loss of height. There is flattening with mild concavity of superior endplate of L4 with 25-35% loss of height. Contrast resolution on CT is suboptimal for evaluating spinal canal and neural foramina. L2-3: There is subtle retrolisthesis and circumferential broad-based disc bulge with mild facet protrusion resulting in jaqy-wz-swrteirv spinal stenosis. There is probably mild foraminal narrowing. L3-L4: There is mild circumferential broad-based disc bulge and mild facet hypertrophy likely with mild spinal stenosis and minimal foraminal narrowing. L4-L5: There is subtle anterolisthesis. There is broad-based disc bulge. There is moderate facet sclerosis and osteophytes with vacuum phenomenon. L5-S1: There is moderate loss of disc height and vacuum phenomena. There is endplate sclerosis and osteophytes. There is broad-based disc bulge. There is moderate facet sclerosis and osteophytes with vacuum phenomenon. CT/CT lumbar spine wo IV con IMPRESSION: Suspected acute moderate L2 and and [id number] L4 superior endplate compression fractures. Degenerative disc disease and facet arthropathy. There is possible mild spinal stenosis and foraminal narrowing not well demonstrated on CT. Electronically signed by: Nando Pollard MD 01/15/2025 12:55 PM EDT RP Dictated By: Nando Pollard MD Signed By: Electronically signed by Nando Pollard MD 01/15/25 1250 Radiology Impression Discussion of test interpretation with radiology: I have reviewed the radiologist's reading. Independent Historian Clinical information obtained from an independent historian. History obtained from or confirmed by: EMS (EMS provided additional history and confirmed the history provided by the patient.) Prescription Management I considered prescription management with: Pain Medication (Patient prescribed pain medication.) Critical Care Time Critical Care Time Critical Care Time: Yes Total Critical Care Time: 36 Attestation: I spent 36 minutes of Critical Care Time with this patient. This does not include time spent on separately reported billable procedures. Discharge Plan Discharge Clinical Impression: Closed L2 vertebral fracture Qualifiers: Encounter type: initial encounter Fracture morphology: unspecified fracture morphology Qualified Code(s): S32.029A - Unspecified fracture of second lumbar vertebra, initial encounter for closed fracture Closed L4 vertebral fracture Qualifiers: Encounter type: initial encounter Fracture morphology: unspecified fracture morphology Qualified Code(s): S32.049A - Unspecified fracture of fourth lumbar vertebra, initial encounter for closed fracture Patient Disposition: Home, Self-Care Instructions: Vertebral Compression Fracture (ED) Additional Instructions: Follow up with your primary care provider and a patient financial services specialist for your L2 and L4 compression fractures. Return to the emergency department immediately if your symptoms worsen or if you develop any numbness, tingling, dizziness, shortness of breath, difficulty breathing, chest pain, blurry vision, loss of vision, nausea, vomiting, abdominal pain, fever, chills, back pain, or any other complaints. Please see the information below about our Patient Portal. If you are not yet enrolled in the [facility] Patient Portal, you will receive an enrollment email invitation following your visit to any [facility] setting. You may also self-enroll in the Patient Portal by visiting our website: [email or web address] The following information is required to access the Patient Portal: - Your [facility] Medical Record Number - Your personal home email address (must match what is in your electronic medical record, Registration staff can assist with this) - Name - Date of Capabilities of the Patient Portal: - Message some providers - View upcoming appointments - Access your health summary, medical history, and visit history - View current conditions and allergies - View procedure and lab results - View your medications, including guidelines, side effects, and precautions - Complete pre-appointment questionnaires requested by your provider - Ready summary reports of your office visits and procedures To access the Patient Portal Mobile Ines, follow these directions: - Search [employer] in the Ines Store or [employer] Store - Download the Ines - Search for [facility] - Enter your login/password Prescriptions: New naproxen 500 mg tablet 500 mg PO BID 7 Days Qty: 14 0RF No Action ondansetron 4 mg tablet,disintegrating 4 mg PO Q8H PRN (Reason: nausea and vomiting) Qty: 14 0RF prednisone 20 mg tablet 60 mg PO DAILY 5 Days Qty: 15 0RF azithromycin [Zithromax Z-Carmelo] 250 mg tablet See Rx Instructions .ROUTE .COMPLEX Qty: 6 0RF Rx Instructions: For 250 mg dose pack: take 500 mg today (day 1), then 250 mg for 4 days (days 2-5) albuterol sulfate 2.5 mg/0.5 mL solution for nebulization 5 mg inhalation Q6H PRN (Reason: shortness of breath or wheezing) Qty: 30 0RF ibuprofen 600 mg tablet 600 mg PO Q6H Qty: 20 0RF ibuprofen 600 mg tablet 600 mg PO Q6H PRN (Reason: pain) Qty: 30 0RF acetaminophen [Tylenol Extra Strength] 500 mg tablet 1,000 mg PO Q6H PRN (Reason: pain) Qty: 30 0RF Referrals: [facility] [Provider Group] (Call to establish and follow up with a patient financial services specialist. ) Thalia Rosa PA [Primary Care Provider] - Stand Alone Forms: Work/School Release Print Language: Dominican
[2025-01-15 09:20] VITALS: BP 124/68; PULSE 97; RESP 18; TEMP 36.6; O2SAT 98; BMI 37.7
[2025-01-15 09:51] LABS: MANUAL DIFF FLAG NO
[2025-01-15 09:54] LABS: Basophils Absolute Auto 0.1 X10*3/uL (0.0-0.2); Basophils Percent Auto 0.9 % (0-2); Eosinophils Absolute Auto 0.3 X10*3/uL (0.0-0.4); Eosinophils Percent Auto 3.9 % (0-4); Hematocrit 39.2 % (37.0-47.0); Hemoglobin 12.9 g/dl (12.0-16.0); Imm Gran Abs Auto 0.04 X10*3/uL (0.00-0.03); Imm Gran Pct Auto 0.5 % (0.0-0.4); Lymphocytes Absolute Auto 1.1 X10*3/uL (1.2-4.9); Lymphocytes Percent Auto 14.3 % (20-40); Mean Corpuscular HGB Conc 32.9 g/dl (31.0-35.0); Mean Corpuscular Hemoglobin 30.7 pg (27.0-33.0); Mean Corpuscular Volume 93.3 fL (80.0-98.0); Mean Platelet Volume 9.4 fL (9.4-12.3); Monocytes Absolute Auto 0.8 X10*3/uL (0.1-1.2); Monocytes Percent Auto 9.7 % (2-11); Neutrophils Absolute Auto 5.6 x10*3/uL (2.0-8.3); Neutrophils Percent Auto 70.7 % (45-73); Platelet Count 286 X10*3/uL (160-400)
[2025-01-15 10:04] VITALS: RESP 18
[2025-01-15] MEDS: ondansetron HCL 4 MG/2 ML VIAL IVPUSH (10:04)
[2025-01-15] MEDS: Morphine Sulfate 4 MG/ML CARTRIDGE IVPUSH (10:04)
--- NOTE | 2025-01-15 10:05 | PC.NURSE ---
Patient presents to ED c/o back pain rated 10/10. Patient was on top on her counter when she fell off and hit her head and her butt. Pain rated 10/10, pain on hip and pelvis movement. Denies LOC. - thinners - vision changes. Patient c/o N/V, administered zofran, effectiveness pending. 20G placed in LAC, administered morphine, effectiveness pending. Patient also states she has become incontinent which is not her baseline. VSS and up to date. Plan of care on going.
[2025-01-15 10:06] LABS: Alanine Aminotransferase 80 U/L (0-31); Alkaline Phosphatase 143 U/L (39-117); Anion Gap 12 (12-20); Aspartate Amino Transferase 104 U/L (5-31); Bilirubin Total 0.9 mg/dL (0.0-1.0); Blood Urea Nitrogen 8 mg/dL (9-16); Calcium 9.7 mg/dL (8.4-10.2); Carbon Dioxide 22 mmol/L (22-29); Chloride 108 mmol/L (96-108); Creatinine Clr Calc Pharmacy 111.1; Estimated Glomerular Filt Rate > 60; Glucose Random 110 mg/dL (60-115); Potassium 3.5 mmol/L (3.3-5.1); Sodium 138 mmol/L (135-145); Total Protein 7.4 g/dL (6.5-8.0)
--- OUTSIDE RECORDS SUMMARY | 2025-01-15 10:26 | XMS_ITS | Clinical Summary ---
Author Organization [facility] it Address [address] [place] [address] Care Team Providers Care Reel Film Inspector Name Role Phone Unavailable Primary Care Provider [...] 2021 Zoster Vaccines (1 of 2) 2021 COVID-19 Vaccine ( - 2023-2 5 season) 2024 Influenza Vaccine (Season Ended) 2025 HIB Vaccines Aged Out No longer eligi [...] age to complete this topic Meningococcal B Vaccine Aged Out No l onger eligible based on patient's age to complete [...]
[2025-01-15 10:42] VITALS: BP 123/70; PULSE 80; RESP 18; TEMP 36.3; O2SAT 96
[2025-01-15 12:08] LABS: Appearance Urine Cloudy; Color Urine Yellow; Glucose Urine UA Negative (Negative); Leukocyte Esterase Urine Trace (Negative); Nitrite Urine Negative (Negative); Specific Gravity - Urine 1.015 (1.005-1.025); UMIC TRIGGER UACC YES; Urine Blood Negative (Negative); Urine Ketones Negative (Negative); Urine Protein Negative (Neg-Trace)
[2025-01-15 12:13] LABS: Bacteria Urine 2+ (None Seen); Hyaline Casts Urine 0-2 /LPF (0-2); RBC Urine 0-2 /HPF (0-2); WBC Urine 0-5 /HPF (0-5)
[2025-01-15] MEDS: diazePAM 10 MG/2 ML CARTRIDGE 5 MG IVPUSH (13:15)
[2025-01-15 13:57] VITALS: BP 114/67; PULSE 83; RESP 18; TEMP 36.5; O2SAT 98
== END 2025-01-15 13:58 | disposition home or self-care (01) ==
PROVIDERS: Physician Assistant Medical; Emergency Provider Emergency Medicine; PCP Physician Assistant Medical
DX: S32.029A Unspecified fracture of second lumbar vertebra, initial encounter for closed fracture (principal); S32.049A Unspecified fracture of fourth lumbar vertebra, initial encounter for closed fracture; W17.89XA Other fall from one level to another, initial encounter; M54.50 Low back pain, unspecified; Y93.89 Activity, other specified; Y92.010 Kitchen of single-family (private) house as the place of occurrence of the external cause; Y99.9 Unspecified external cause status
CPT/HCPCS: 36415; 72131; 80053; 81001; 83735; 85025; 96374; 96375; 99284; 99291; J2270; J2405; J3360

== ENCOUNTER → 2025-01-15 09:26 | Outpatient (BNV) | payer OTHER, SELFPAY | PROVIDERS: PCP Physician Assistant Medical; Visit Provider Radiology Diagnostic Radiology | DX: M54.50 Low back pain, unspecified (principal); W19.XXXA Unspecified fall, initial encounter | CPT/HCPCS: 72131 ==